=== PATIENT | female | born 1960 | race Caucasian/White ===

== ENCOUNTER 2017-04-15 10:23 | Emergency (ER) | payer SELFPAY | END 2017-04-15 12:09 | disposition home or self-care (01) | LOC: D.ER 10:23 | DX: Z03.89 Encounter for observation for other suspected diseases and conditions ruled out (principal); E11.9 Type 2 diabetes mellitus without complications ==

== ENCOUNTER 2017-07-10 09:36 | Observation (INO) | payer MEDICAID ==
[~2017-07-10] VITALS: Ht 167.6 cm; Wt 125.0 kg
--- NOTE | ~2017-07-10 | ST ---
PATIENT:SANDHYA MENDEZ MEDICAL RECORD: [id number] SEX: F [facility] ORDER #: ADMISSION DATE: 07/10/17 AGE OF PATIENT: 56 REFERRING PHYSICIAN: INTERPRETING PHYSICIAN: YSABEL BECERRA MD DATE OF SERVICE: 07/11/2017 The patient underwent a standard Lexiscan sestamibi stress test. FINDINGS: The patient had no evidence of reversible ischemia. She had preserved LV systolic function with ejection fraction of 65%. There were no regional wall motion abnormalities demonstrated. CONCLUSION: The test is negative for inducible ischemia with preserved LV systolic function. The test was completed according to protocol without complication. TRANSINT:[id number] Voice Confirmation ID: [id number] DOCUMENT ID: [id number] YSABEL BECERRA MD CC: [id number] DICTATION DATE: 07/13/172005 SERVICE DESK SPECIALIST: 07/13/17 2306 DIS IN 07/11/17 [id number] [place] [address]
--- NOTE | ~2017-07-10 | EC ---
PATIENT:SANDHYA MENDEZ DATE OF SERVICE: 07/10/17 SEX: F MEDICAL RECORD: [id number] DATE OF : 58 LOCATION:D.M2 D.211 AGE OF PATIENT: 56 ADMISSION DATE: 07/10/17 REFERRING PHYSICIAN: INTERPRETING PHYSICIAN: YSABEL BECERRA MD ECHOCARDIOGRAM REPORT ECHO CHARGES 4 ECHO COMPLETE CLINICAL DIAGNOSIS: CP ECHOCARDIOGRAPHIC MEASUREMENTS (adult normal given) AC root (d.<3.7cm) 2.9 cm LV Septum d (<1.2 cm> 1.5 cm Valve Excursion 1.7 cm LV Septum (systole) 1.9 cm Left Atria (s.<4.0cm> 4.0 cm LVPW d(<1.2cm) 1.4 cm RV (d.<2.3cm) 2.9 cm LVPW (sytole) 2.0 cm LV diastole(<5.6CM) 5.1 cm MV E-F(>70mm/sec) cm LV systole 2.9 cm LVOT Diameter 1.7 cm MV exc.(>10mm) cm Est.ejection fraction (50-75%) % Pericardial Effusion N DOPPLER: LVIT cm/sec A 75.0 cm/sec E 93.0 cm/sec LA cm/sec RVSP 29.0 mmHg LVOT 134 cm/sec AOP1/2T m/s Asc. Ao 184 cm/sec RVOT 61.0 cm/sec RA cm/sec PA 83.0 cm/sec AV Gradient Peak 14.0 mmHg AV Mean 6.8 mmHg AV Area 1.9 cm MV Gradient Peak 5.4 mmHg MV Mean 2.6 mmHg MV Area cm COMMENTS: Bodywork Therapist: Nick WINKLEROE Head Wood Grinder: 4 Dr. Becerra TAPE# PACS DATE OF SERVICE: 07/11/2017 Transthoracic Echocardiogram Report FINDINGS: 1. Left ventricle: Normal size, normal function with mild left ventricular hypertrophy. Inflow characteristics are normal. The ejection fraction is 50%. 2. The left atrium has upper limits of normal left atrial enlargement with normal function. 3. The right ventricle has normal size and normal function. ECHOCARDIOGRAM REPORT [id number] SANDHYA MENDEZ 4. The right atrium has normal size and normal function. 5. Aortic valve is normal. 6. The mitral valve has mild mitral regurgitation, otherwise normal structure. 7. The tricuspid valve has normal function. The estimated right ventricular systolic pressure is 25-29 mmHg. 8. The pulmonic valve has trace pulmonic insufficiency. It is not well visualized. 9. There is normal pericardium without any effusion. 10. The IVC is shown to be normal sized and collapses, indicating normal central venous pressure. TRANSINT:[id number] Voice Confirmation ID: [id number] DOCUMENT ID: [id number] YSABEL BECERRA MD CC: [id number] DICTATION DATE: 07/13/172009 CURRICULUM DIRECTOR: 07/13/17 2317 DIS IN 07/11/17 [id number] [place] [id number]
[2017-07-10 10:20] LABS: BASOPHILS 0.3 % (0-2); EOSINOPHILS 1.9 % (0-7); HEMATOCRIT 43.1 % (36.0-48.0); HEMOGLOBIN 14.4 g/dL (12-16); IMMATURE GRANULOCYTES 0.6 % (0-5); LYMPHOCYTES 24.5 % (15-50); MCH 29.3 pg (26.0-34.0); MCHC 33.4 g/dL (31.0-37.0); MCV 87.6 fL (80.0-100.0); MONOCYTES 5.8 % (2-11); NEUTROPHILS 66.9 % (40-80); PLATELET COUNT 229 10x3/uL (130-400); RBC 4.92 10x6/uL (4.00-5.40); RDW 13.7 % (11.5-14.5); WBC 6.9 10x3/uL (4.8-10.8)
[2017-07-10 10:34] LABS: ALBUMIN 3.3 g/dL (3.4-5.0); ALKALINE PHOSPHATASE 116 U/L (46-116); ALT (SGPT) 18 U/L (10-68); CALC OSMOLALITY 284 mosm/kg (275-300); CALCIUM 8.6 mg/dL (8.5-10.1); CARBON DIOXIDE 25.7 mmol/L (21.0-32.0); CHLORIDE - SERUM 102 mmol/L (98-107); CREATININE - SERUM 0.9 mg/dL (0.6-1.3); GLUCOSE 259 mg/dL (74-106); POTASSIUM - SERUM 4.1 mmol/L (3.5-5.1); PROTEIN - SERUM 7.4 g/dL (6.4-8.2); SODIUM 138 mmol/L (136-145); UREA NITROGEN 12 mg/dL (7-18); eGFR NON AFRICAN AMERICAN 68 mL/min (90-120)
[2017-07-10 10:49] LABS: CKMB 0.2 U/L (0.0-3.6); CREATINE KINASE 70 UL (21-215); TROPONIN-I < 0.017 ng/mL (0.000-0.060)
[2017-07-10] MEDS ORDERED: LYRICA100 MG PO (11:58)
[2017-07-10] MEDS ORDERED: LANTUS INSULIN10 ML SC (11:58)
[2017-07-10] MEDS ORDERED: VICTOZA0.6 MG/0.1 SQ (11:59)
[2017-07-10 13:48] VITALS: BP 129/73; Ht 167.6 cm; Wt 125.0 kg
[2017-07-10 16:00] VITALS: BP 133/59
[2017-07-10 16:24] LABS: UDS - AMPHET NEGATIVE QUAL (NEGATIVE); UDS - BARB NEGATIVE QUAL (NEGATIVE); UDS - BENZO NEGATIVE QUAL (NEGATIVE); UDS - COCAINE NEGATIVE QUAL (NEGATIVE); UDS - METH NEGATIVE QUAL (NEGATIVE); UDS - OPIATE NEGATIVE QUAL (NEGATIVE); UDS - PCP NEGATIVE QUAL (NEGATIVE); UDS - THC NEGATIVE QUAL (NEGATIVE)
[2017-07-10 19:00] VITALS: BP 148/48
[2017-07-11] VITALS: BP 155/47
[2017-07-11 04:00] VITALS: BP 153/85
[2017-07-11 05:53] LABS: CALC OSMOLALITY 283 mosm/kg (275-300); CALCIUM 8.6 mg/dL (8.5-10.1); CARBON DIOXIDE 27.4 mmol/L (21.0-32.0); CHLORIDE - SERUM 107 mmol/L (98-107); CHOL - HDL RATIO 5.4 ratio (2.3-4.1); CHOLESTEROL, TOTAL 185 mg/dL (0-200); CREATININE - SERUM 0.7 mg/dL (0.6-1.3); HDL CHOLESTEROL 34 mg/dL (32-96); LDL CHOLESTEROL 128 mg/dL (0-100); LDL-HDL RATIO 3.8 ratio (1.5-3.5); POTASSIUM - SERUM 3.8 mmol/L (3.5-5.1); SODIUM 141 mmol/L (136-145); TRIGLYCERIDE 115 mg/dL (30-200); TROPONIN-I < 0.017 ng/mL (0.000-0.060); UREA NITROGEN 14 mg/dL (7-18); eGFR NON AFRICAN AMERICAN > 90 mL/min (90-120)
[2017-07-11 06:11] LABS: GLUCOSE 142 mg/dL (74-106)
--- NOTE | 2017-07-11 07:31 | HP ---
PATIENT: SANDHYA MENDEZ MEDICAL RECORD: [id number] ACCOUNT: [id number] LOCATION:[facility].2115 : 58 ADMISSION DATE: 07/10/17 HISTORY AND PHYSICAL EXAMINATION HISTORY OF PRESENT ILLNESS: A 56-year-old female presented to the Emergency Room after 3 days of chest pain, 1 episode waking her from sleep with shortness of breath. Pain is worse with exertion, improved with rest. PAST MEDICAL HISTORY: Significant for diabetes mellitus, insulin-dependent, had been on insulin for many years. FAMILY HISTORY: Significant for heart disease. Mother secondary to UT, at age 65. PRIMARY CARE PHYSICIAN: Dr. Zavala at [facility]. She does not have a doctor at this hospital, admitted through med distribution a class lineman. CURRENT MEDICATIONS: Listed as Lyrica 100 mg, Lantus 80 units subQ at bedtime, Victoza, which was recently started, she has not taken it for 2 days, and aspirin p.r.n. PAST SURGICAL HISTORY: Bilateral tubal ligation. REVIEW OF SYSTEMS: GENERAL: No acute change in weight or appetite. HEENT: No cephalgia, visual changes, tinnitus, epistaxis, or dysphagia. CARDIOVASCULAR: Episodic chest pain for the past 3 days, presently pain free. PULMONARY: Denies hemoptysis. Denies night sweats. GASTROINTESTINAL: Denies hematemesis, hematochezia, or melena. GENITOURINARY: Denies dysuria. Denies change in frequency. MUSCULOSKELETAL: No acute changes. ENDOCRINE: Denies polyuria, polydipsia, or polyphagia. History of diabetes mellitus, insulin-dependent. PHYSICAL EXAMINATION: VITAL SIGNS: Temperature 98.6, blood pressure 160/79, heart rate 92, respirations 18 and O2 sats 98% on 2 liters via nasal cannula. GENERAL: Alert and oriented, no present distress. HEENT: Head normocephalic and atraumatic. Eyes: Pupils are equal, round, reactive to light and accommodation. Extraocular muscles intact. Conjunctiva was not injected. Ears: Canals patent, TMs are intact. Nose: Nares are patent without drainage. Throat: No erythema and no exudates. NECK: Supple. No lymphadenopathy and no JVD. HEART: Regular rate and rhythm. No S3 or S4. No rub. LUNGS: Clear to auscultation bilaterally. Breathing is nonlabored. ABDOMEN: Soft, obese, nontender. Bowel sounds all 4 quadrants. EXTREMITIES: Present times 4. NEUROLOGICAL: Cranial nerves II through XII grossly intact. No focal deficits. SKIN: Warm and dry. No rash. LABORATORY DATA: Urinalysis, urine drug screen is negative. CBC: White count 6.9, hemoglobin 14.4, hematocrit 43.1 and platelets 229. Sodium 138, potassium 4.1, chloride 102, bicarbonate 25.7, BUN 12, creatinine 0.9 and glucose 259. AST 17, ALT 18 and alkaline phosphatase 116. CK 70 and CK-MB is 0.2. Troponin HISTORY AND PHYSICAL [id number] SANDHYA MENDEZ GILDA less than 0.017. Albumin 3.3. IMAGING DATA: Chest x-ray: No acute cardiopulmonary abnormalities. EKG; sinus rhythm, rate of 93, flipped T in V1 and lead III, abnormal EKG. ASSESSMENT AND PLAN: Chest pain with multiple risk factors. The patient is admitted, cycle enzymes. Cardiology consulted. N.p.o. after midnight in case intervention in a.m. TRANSINT:[id number] Voice Confirmation ID: [id number] DOCUMENT ID: [id number] LOREE SEAY DO at 0731 CC: [id number] DICTATION DATE: 07/10/171728 SECURITY NURSE: 07/10/172010 ADM IN [facility] [address] [id number]
[2017-07-11 08:00] VITALS: BP 149/100
[2017-07-11 12:00] VITALS: BP 148/78
[2017-07-11 16:00] VITALS: BP 158/54
== END 2017-07-11 19:35 | disposition home or self-care (01) ==
LOC: D.ER 09:36 → D.M2 11:17 → OBSVTIME 11:17 → D.M2 07-11 19:35
PROVIDERS: Emergency Medicine; ADMIT Family Medicine
DX: I24.9 Acute ischemic heart disease, unspecified (principal); E78.5 Hyperlipidemia, unspecified; I10 Essential (primary) hypertension; E11.65 Type 2 diabetes mellitus with hyperglycemia; Z79.4 Long term (current) use of insulin

== ENCOUNTER → 2017-12-22 10:47 | Outpatient (CLI) | payer MEDICAID ==
[2017-07-10 13:48] VITALS: BMI 44.5
[~2017-12-22 10:47] MED LIST: LANTUS INSULIN10 ML SC; LYRICA100 MG PO; VICTOZA0.6 MG/0.1 SQ
== END | disposition home or self-care (01) ==
LOC: D.MRI 10:47
DX: S83.231A Complex tear of medial meniscus, current injury, right knee, initial encounter (principal); X58.XXXA Exposure to other specified factors, initial encounter; Y93.89 Activity, other specified; Y92.89 Other specified places as the place of occurrence of the external cause

== ENCOUNTER 2018-01-12 07:20 | Day surgery (SDC) | payer MEDICAID ==
[2018-01-09 10:06] LABS: HEMATOCRIT 42.9 % (36.0-48.0); HEMOGLOBIN 14.4 g/dL (12-16); MCH 28.9 pg (26.0-34.0); MCHC 33.6 g/dL (31.0-37.0); MEAN PLATELET VOLUME 11.3 fL (7.4-10.4); RBC 4.99 10x6/uL (4.00-5.40); RDW 13.7 % (11.5-14.5); WBC 7.8 10x3/uL (4.8-10.8)
[2018-01-09 10:27] LABS: ANION GAP 13.6 mmol/L (8-16); CALCIUM 8.9 mg/dL (8.5-10.1); CARBON DIOXIDE 23.4 mmol/L (21.0-32.0); CREATININE - SERUM 0.9 mg/dL (0.6-1.3)
[~2018-01-12] VITALS: Ht 167.6 cm; Wt 127.0 kg
--- NOTE | ~2018-01-12 | OP ---
PATIENT NAME: SANDHYA MENDEZ MEDICAL RECORD: [id number] :58 LOCATION:D.OPS ADMISSION DATE: SURGEON: DIANA PAZ MD DATE OF OPERATION: 01/12/2018 PREOPERATIVE DIAGNOSIS: Right medial meniscus tear. POSTOPERATIVE DIAGNOSIS: Right medial meniscus tear. PROCEDURE: Partial medial meniscectomy of the right knee. SURGEON: DIANA PAZ MD ANESTHESIA: General. INTRAOPERATIVE COMPLICATIONS: None. SUMMARY OF PATHOLOGIC FINDINGS: The patient did have a complex tear of the posterior horn of the medial meniscus. OPERATIVE SUMMARY IN DETAIL: After obtaining the appropriate preoperative orthopedic surgery consent as well as anesthetic consultation, evaluation and clearance, the patient was brought to the operating room and placed on the operating table in supine position. After adequate general laryngeal mask airway was administered, tourniquet was placed about the proximal aspect of the right lower extremity. Right lower extremity was then prepped and draped in routine sterile fashion. Leg was elevated, exsanguinated and tourniquet was inflated to 350 mmHg. Routine inferolateral portal was established followed by superomedial portal and inferomedial portal. Diagnostic arthroscopy did reveal the above findings. A combination of a full radius resector as well as a meniscotome were utilized to debride this, the end stable meniscal elements back to stable meniscal elements with good retained bumper, mild amount of chondromalacia was seen within the medial femoral compartment. Having completed this, the knee was insufflated with 30 cc of 0.25% Marcaine with epinephrine and 80 mg of Depo-Medrol. Arthroscopy portals were closed in routine interrupted fashion using 4-0 Prolene. Sterile dressings were applied. The patient was awakened, taken to recovery room in stable condition. All final needle and sponge counts were correct. TRANSINT:[id number] Voice Confirmation ID: [id number] DOCUMENT ID: [id number] DIANA PAZ MD at 1601 CC: [id number] DICTATION DATE: 01/15/18901 SKILLED NURSING CASE MANAGER: 01/15/18 1108 DEP [facility] – [place] 01/12/18 [place] [address]
[2018-01-12] MEDS ORDERED: HYDROCODON-ACE1 EAC7 PO (07:33)
[2018-01-12 07:34] VITALS: BP 155/81; Ht 167.6 cm; Wt 127.0 kg
[2018-01-12] MEDS ORDERED: HYDROCODONE-APA1 TAB PO (12:33)
== END 2018-01-12 13:40 | disposition home or self-care (01) ==
LOC: D.OPS 07:20 → D.PAN 11:00 → D.OPS 13:40
PROVIDERS: Anesthesiology
DX: S83.241A Other tear of medial meniscus, current injury, right knee, initial encounter (principal); I10 Essential (primary) hypertension; E11.9 Type 2 diabetes mellitus without complications; E66.9 Obesity, unspecified; Z01.812 Encounter for preprocedural laboratory examination

== ENCOUNTER → 2018-01-26 11:05 | Outpatient (CLI) | payer MEDICAID ==
[2018-01-12 07:34] VITALS: BMI 45.3
[~2018-01-26 11:05] MED LIST changes: +HYDROCODON-ACE1 EAC7 PO; +HYDROCODONE-APA1 TAB PO
== END | disposition home or self-care (01) ==
LOC: D.US 11:05
DX: R60.9 Edema, unspecified (principal); M79.604 Pain in right leg

== ENCOUNTER → 2018-02-12 09:56 | Outpatient (CLI) | payer MEDICAID ==
[2018-01-12 07:34] VITALS: BMI 45.3
== END | disposition home or self-care (01) ==
LOC: D.MRI 02-11 14:30
DX: M25.561 Pain in right knee (principal)

== ENCOUNTER 2018-05-10 15:45 | Emergency (ER) | payer MEDICAID ==
[~2018-05-10] VITALS: Ht 167.6 cm; Wt 122.7 kg
[2018-05-10 15:57] VITALS: Ht 167.6 cm; Wt 122.7 kg
[2018-05-10 16:21] LABS: BASOPHILS 0.2 % (0-2); EOSINOPHILS 2.7 % (0-7); HEMATOCRIT 44.6 % (36.0-48.0); HEMOGLOBIN 14.7 g/dL (12-16); IMMATURE GRANULOCYTES 0.5 % (0-5); LYMPHOCYTES 25.6 % (15-50); MEAN PLATELET VOLUME 11.2 fL (7.4-10.4); MONOCYTES 5.4 % (2-11); NEUTROPHILS 65.6 % (40-80); PLATELET COUNT 234 10x3/uL (130-400); RBC 5.07 10x6/uL (4.00-5.40); RDW 13.5 % (11.5-14.5); WBC 9.8 10x3/uL (4.8-10.8)
[2018-05-10 16:43] LABS: ALBUMIN 3.4 g/dL (3.4-5.0); ALKALINE PHOSPHATASE 135 U/L (46-116); ALT (SGPT) 22 U/L (10-68); BILIRUBIN - TOTAL 0.55 mg/dL (0.2-1.3); CALC OSMOLALITY 284 mosm/kg (275-300); CALCIUM 8.8 mg/dL (8.5-10.1); CARBON DIOXIDE 30.2 mmol/L (21.0-32.0); CHLORIDE - SERUM 101 mmol/L (98-107); CREATININE - SERUM 0.8 mg/dL (0.6-1.3); POTASSIUM - SERUM 4.1 mmol/L (3.5-5.1); PROTEIN - SERUM 7.6 g/dL (6.4-8.2); SODIUM 138 mmol/L (136-145); UREA NITROGEN 13 mg/dL (7-18); eGFR NON AFRICAN AMERICAN 78 mL/min (90-120)
[2018-05-10 16:45] LABS: GLUCOSE 256 mg/dL (74-106)
[2018-05-10] MEDS ORDERED: HYDROCODON-ACE1 EAC7 PO (19:11)
[2018-05-10 19:52] VITALS: BP 125/77
== END 2018-05-10 19:52 | disposition home or self-care (01) ==
LOC: D.ER 15:45
PROVIDERS: Family Medicine
DX: M79.604 Pain in right leg (principal); S86.001A Unspecified injury of right Achilles tendon, initial encounter; X58.XXXA Exposure to other specified factors, initial encounter; Y93.89 Activity, other specified; Y92.019 Unspecified place in single-family (private) house as the place of occurrence of the external cause; I10 Essential (primary) hypertension